=== PATIENT | female | born 1960 | race American Indian/Alaskan Native ===

== ENCOUNTER 2016-12-13 13:19 | Emergency (ER) | payer MEDICAID, MEDICARE ==
[2016-12-13] MEDS ORDERED: Ketorolac 60 MG/2 ML SDV IM ONE (14:02)
[2016-12-13] MEDS ORDERED: Cyclobenzaprine 10 MG Tab PO ONE (14:02)
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
[2016-12-13 14:34] VITALS: BP 138/63
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
== END 2016-12-13 15:21 | disposition home or self-care (01) ==
LOC: JP.ED 13:19
DX: M54.2 Cervicalgia (principal); M25.519 Pain in unspecified shoulder; F17.210 Nicotine dependence, cigarettes, uncomplicated; J44.9 Chronic obstructive pulmonary disease, unspecified; I10 Essential (primary) hypertension; E66.9 Obesity, unspecified; F43.10 Post-traumatic stress disorder, unspecified; Z98.51 Tubal ligation status; Z90.49 Acquired absence of other specified parts of digestive tract; Z79.899 Other long term (current) drug therapy; V89.2XXA Person injured in unspecified motor-vehicle accident, traffic, initial encounter
CPT/HCPCS: 70450; 71250; 72125; 96372; 99284; A9270; J1885

== ENCOUNTER 2019-07-25 14:37 | Emergency (ER) | payer MEDICARE ==
[2019-07-25 14:57] VITALS: BP 183/87; PULSE 61
[2019-07-25] MEDS ORDERED: Prochlorperazine 10 MG/2 ML SDV IVPUSH ONE (14:59)
--- NOTE | 2019-07-25 15:07 | EDM.PDOC ---
ED HPI GENERAL MEDICAL PROBLEM - General Chief Complaint: Abdominal Pain Stated Complaint: MEDICAL VIA [facility] Time Seen by Provider: 07/25/19 14:45 Source of Information: Reports: Patient, EMS, Old Records, RN History Limitations: Reports: No Limitations - History of Present Illness INITIAL COMMENTS - FREE TEXT/NARRATIVE: 58 yo female developed abdominal pain with a sense of some mild bloating and nausea about 0700h today. These sx's have progressed. Is improved after EMS gave Fentanyl and Zofran, but not resolved. No fever. No change in bowels. Has had a few abdominal surgeries in the past for ectopic preg and appendectomy. Pain is generalized. Last week had viral gastroenteritis with vomiting and diarrhea, but these sx's have been resolved for several days. No urinary sx's. Onset: Today Onset Date: 07/25/19 Onset Time: 07:00 Duration: Hour(s):, Getting Worse Location: Reports: Abdomen Quality: Reports: Ache Severity: Moderate Improves with: Reports: Medication Worsens with: Reports: Other (? time) Context: Reports: Other (see HPI) Associated Symptoms: Reports: Nausea/Vomiting. 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 (see below) (See HPI) Abdomen Pain Score (Numeric/FACES): 2 - Related Data Allergies Allergy/AdvReac Type Severity Reaction Status Date / Time No Known Allergies Allergy Verified 07/25/19 14:39 Home Meds: Home Meds Albuterol [Proair HFA] 2 puff IH ASDIRECTED PRN 08/29/13 [History] Budesonide/Formoterol Fumarate [Symbicort 80-4.5 MCG] 2 puff IH BID 08/29/13 [ History] Cetirizine [ZyrTEC] 10 mg PO ASDIRECTED PRN 08/29/13 [History] Lisinopril/Hydrochlorothiazide [Lisinopril-Hctz 20-12.5 mg Tab] 10 mg PO DAILY 08/29/13 [History] Omeprazole 20 mg PO DAILY 08/29/13 [History] Pregabalin [Lyrica] 150 mg PO BID 08/29/13 [History] Venlafaxine [Venlafaxine ER] 300 mg PO DAILY 08/29/13 [History] Aspirin [[place] Aspirin] 81 mg PO DAILY 12/13/16 [History] Past Medical History HEENT History: Reports: Allergic Rhinitis Cardiovascular History: Reports: Hypertension 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: 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: Musculoskeletal History: Reports: Back Pain, Chronic, Fibromyalgia Neurological History: Reports: Migraines Psychiatric History: Reports: Anxiety, Depression, PTSD Endocrine/Metabolic History: Reports: Obesity/BMI 30+ - Infectious Disease History Infectious Disease History: Reports: C-Difficile, Influenza, Measles - Past Surgical History Respiratory Surgical History: Reports: None GI Surgical History: Reports: Appendectomy Female Surgical History: Reports: Tubal Ligation Social & Family History - Caffeine Use Caffeine Use: Reports: Coffee ED ROS GENERAL - Review of Systems Review Of Systems: See Below Constitutional: Reports: No Symptoms HEENT: Reports: No Symptoms Respiratory: Reports: No Symptoms Cardiovascular: Reports: No Symptoms GI/Abdominal: Reports: Abdominal Pain, Distension (? mild), Nausea. Denies: Black Stool, Bloody Stool, Constipation, Diarrhea, Flatus, Hematemesis, Hematochezia, Melena, Vomiting : Reports: No Symptoms Musculoskeletal: Reports: No Symptoms Skin: Reports: No Symptoms Neurological: Reports: No Symptoms Psychiatric: Reports: No Symptoms ED EXAM, GI/ABD - Physical Exam Exam: See Below Exam Limited By: No Limitations General Appearance: Alert, WD/WN, No Apparent Distress Eyes: Bilateral: Normal Appearance Ears: Normal External Exam, Normal Canal, Hearing Grossly Normal Nose: Normal Inspection, No Blood Throat/Mouth: Normal Inspection, Normal Lips, Normal Oropharynx, Normal Voice, No Airway Compromise Head: Atraumatic, Normocephalic Neck: Normal Inspection Respiratory/Chest: No Respiratory Distress, Lungs Clear, Normal Breath Sounds, No Accessory Muscle Use Cardiovascular: Regular Rate, Rhythm, No Edema GI/Abdominal Exam: Soft, No Distention (not apparent on exam), Tender (mild, diffuse). No: Non-Tender, Distended, Guarding, Rigid, Rebound, Hernia Back Exam: Normal Inspection. No: CVA Tenderness (R), CVA Tenderness (L) Extremities: Normal Inspection, Normal Range of Motion, Non-Tender, No Pedal Edema Neurological: Alert, Oriented, CN II-XII Intact, Normal Cognition, No Motor/ Sensory Deficits Psychiatric: Normal Affect, Normal Mood Skin Exam: Warm, Dry, Intact, Normal Color, No Rash Course - Vital Signs Text/Narrative:: On re-examination does seem to be especially tender in the RUQ. Dr. Vergara called @ 1639h Last Recorded V/S: Last Vital Signs Temp 36.5 C 07/25/19 14:57 Pulse 61 07/25/19 14:57 Resp 20 07/25/19 14:57 BP 183/87 H 07/25/19 14:57 Pulse Ox 98 07/25/19 14:57 - Orders/Labs/Meds Orders: Active Orders 24 hr Category Date Time Status Iopamidol [Isovue-300 (61%)] Med 07/25/19 16:00 Active 100 ml IV . DIRECTED Sodium Chloride 0.9% [Normal Saline] 100 ml Med 07/25/19 16:00 Active IV ASDIRECTED Medication Orders Sodium Chloride (Normal Saline) 100 mls @ 3 mls/sec IV ASDIRECTED REESE Last Admin: 07/25/19 16:05 Dose: 3 mls/sec Iopamidol (Isovue-300 (61%)) 100 ml IV . DIRECTED REESE Last Admin: 07/25/19 16:05 Dose: 100 ml Labs: Laboratory Tests 07/25/19 07/25/19 07/25/19 Range/Units 15:11 15:11 15:11 WBC 8.4 (4.5-11.0) K/uL RBC 4.80 (3.30-5.50) M/uL Hgb 13.7 (12.0-15.0) g/dL Hct 42.3 (36.0-48.0) % MCV 88 (80-98) fL MCH 29 (27-31) pg MCHC 32 (32-36) % Plt Count 255 (150-400) K/uL Sodium 134 L (140-148) mmol/L Potassium 4.1 (3.6-5.2) mmol/L Chloride 96 L (100-108) mmol/L Carbon Dioxide 23 (21-32) mmol/L Anion Gap 19.1 H (5.0-14.0) mmol/L BUN 7 (7-18) mg/dL Creatinine 0.7 (0.6-1.0) mg/dL Est Cr Clr Drug Dosing 79.79 mL/min Estimated GFR (MDRD) > 60 (>60) Glucose 108 H (74-106) mg/dL Calcium 9.3 (8.5-10.1) mg/dL Total Bilirubin 0.5 D (0.2-1.0) mg/dL AST 210 H D (15-37) U/L ALT 160 H (12-78) U/L Alkaline Phosphatase 288 H D (46-116) U/L C-Reactive Protein 2.00 H (0.0-0.3) mg/dL Total Protein 8.3 H (6.4-8.2) g/dL Albumin 3.9 (3.4-5.0) g/dL Globulin 4.4 H (2.3-3.5) g/dL Albumin/Globulin Ratio 0.9 L (1.2-2.2) Lipase (73-393) U/L Urine Color (YELLOW) Urine Appearance (CLEAR) Urine pH (5.0-8.0) Ur Specific Reagan (1.008-1.030) Urine Protein (NEGATIVE) mg/dL Urine Glucose (UA) (NEGATIVE) mg/dL Urine Ketones (NEGATIVE) mg/dL Urine Occult Blood (NEGATIVE) Urine Nitrite (NEGATIVE) Urine Bilirubin (NEGATIVE) Urine Urobilinogen (0.2-1.0) EU/dL Ur Leukocyte Esterase (NEGATIVE) Urine RBC (0-5) Urine WBC (0-5) Ur Epithelial Cells Amorphous Sediment Urine Bacteria Urine Mucus 07/25/19 07/25/19 Range/Units 15:28 15:45 WBC (4.5-11.0) K/uL RBC (3.30-5.50) M/uL Hgb (12.0-15.0) g/dL Hct (36.0-48.0) % MCV (80-98) fL MCH (27-31) pg MCHC (32-36) % Plt Count (150-400) K/uL Sodium (140-148) mmol/L Potassium (3.6-5.2) mmol/L Chloride (100-108) mmol/L Carbon Dioxide (21-32) mmol/L Anion Gap (5.0-14.0) mmol/L BUN (7-18) mg/dL Creatinine (0.6-1.0) mg/dL Est Cr Clr Drug Dosing mL/min Estimated GFR (MDRD) (>60) Glucose (74-106) mg/dL Calcium (8.5-10.1) mg/dL Total Bilirubin (0.2-1.0) mg/dL AST (15-37) U/L ALT (12-78) U/L Alkaline Phosphatase (46-116) U/L C-Reactive Protein (0.0-0.3) mg/dL Total Protein (6.4-8.2) g/dL Albumin (3.4-5.0) g/dL Globulin (2.3-3.5) g/dL Albumin/Globulin Ratio (1.2-2.2) Lipase 89 (73-393) U/L Urine Color Yellow (YELLOW) Urine Appearance Clear (CLEAR) Urine pH 8.5 H (5.0-8.0) Ur Specific Reagan 1.020 (1.008-1.030) Urine Protein Negative (NEGATIVE) mg/dL Urine Glucose (UA) Negative (NEGATIVE) mg/dL Urine Ketones 40 H (NEGATIVE) mg/dL Urine Occult Blood Negative (NEGATIVE) Urine Nitrite Negative (NEGATIVE) Urine Bilirubin Negative (NEGATIVE) Urine Urobilinogen 0.2 (0.2-1.0) EU/dL Ur Leukocyte Esterase Negative (NEGATIVE) Urine RBC 0-5 (0-5) Urine WBC 0-5 (0-5) Ur Epithelial Cells Few Amorphous Sediment Few Urine Bacteria Not seen Urine Mucus Not seen Meds: Medications Generic Name Dose Route Start Last Admin Trade Name Freq PRN Reason Stop Dose Admin Sodium Chloride 100 mls @ 3 mls/sec 07/25/19 16:00 07/25/19 16:05 Normal Saline IV 3 mls/sec ASDIRECTED REESE Administration Iopamidol 100 ml 07/25/19 16:00 07/25/19 16:05 Isovue-300 (61%) IV 100 ml . DIRECTED REESE Administration Discontinued Medications Generic Name Dose Route Start Last Admin Trade Name Freq PRN Reason Stop Dose Admin Ketorolac Tromethamine 30 mg 07/25/19 15:48 07/25/19 15:54 Toradol IVPUSH 07/25/19 15:49 30 mg ONETIME ONE Administration Prochlorperazine Edisylate 5 mg 07/25/19 14:59 07/25/19 15:20 Compazine IVPUSH 07/25/19 15:00 5 mg ONETIME ONE Administration Sodium Chloride 10 ml 07/25/19 15:55 07/25/19 16:05 Saline Flush FLUSH 07/25/19 15:56 10 ml ONETIME ONE Administration - Radiology Interpretation Free Text/Narrative:: Flat/upright abd L-crus-Ghvuglodri: Few prominent loops of small bowel in the mid abdomen could represent early small bowel obstruction. Dictated by Tania Danielle MD @ Jul 25 2019 3:34PM CT abd/pelvis with IV contrast- IMPRESSIONS: 1. A single fluid-filled loop of small bowel in the left flank is noted measuring 3.8 cm. This may be due to peristalsis or a sentinel loop. 2. Mild gallbladder distention is present measuring 4.5 cm in diameter with minimal gallbladder wall edema seen. Evaluation with ultrasound is recommended if the patient has right upper quadrant pain or tenderness. Dictated by Darren Abad MD @ 07/25/2019 4:34:[address] Results Date: 07/25/19 Departure - Departure Time of Disposition: 16:45 Disposition: Home, Self-Care 01 Condition: Fair Clinical Impression: Biliary colic - Discharge Information *PRESCRIPTION DRUG MONITORING PROGRAM REVIEWED*: No *COPY OF PRESCRIPTION DRUG MONITORING REPORT IN PATIENT PAT: No Instructions: Abdominal Pain, Adult, [id number] Referrals: PCP,None [Primary Care Provider] - Forms: ED Department Discharge Additional Instructions: Return tomorrow morning [address] Vergara. Don't eat or drink anything after midnight. No fat in anything you eat this evening. Return in the interim as needed. Sepsis Event Note - Evaluation Sepsis Screening Result: No Definite Risk - Focused Exam Vital Signs: Vital Signs Temp Pulse Resp BP Pulse Ox 07/25/19 14:57 36.5 C 61 20 183/87 H 98 07/25/19 14:55 36.5 C 61 20 183/87 H 98 Date Exam was Performed: 07/25/19 Time Exam was Performed: 16:45 - My Orders Last 24 Hours: My Active Orders 07/25/19 16:00 Iopamidol [Isovue-300 (61%)] 100 ml IV . DIRECTED Sodium Chloride 0.9% [Normal Saline] 100 ml IV ASDIRECTED - Assessment/Plan Last 24 Hours: My Active Orders 07/25/19 16:00 Iopamidol [Isovue-300 (61%)] 100 ml IV . DIRECTED Sodium Chloride 0.9% [Normal Saline] 100 ml IV ASDIRECTED
--- NOTE | 2019-07-25 15:39 | CRLCR ---
Indication: Abdominal pain, nausea, bloating all day. Technique: Abdomen and pelvis 4 view. Comparison: None. Findings: Few prominent loops of small bowel in the mid abdomen could represent early small bowel obstruction. No significant stool burden. No free air or pneumatosis. The lung bases are clear. Impression: Few prominent loops of small bowel in the mid abdomen could represent early small bowel obstruction. Dictated by Tania Danielle MD @ Jul 25 2019 3:34PM Signed by Dr. Tania Danielle @ Jul 25 2019 3:38PM
[2019-07-25] MEDS ORDERED: Ketorolac 30 MG/ML SDV IVPUSH ONE (15:48)
[2019-07-25] MEDS ORDERED: Sodium Chloride 0.9% 10 ML Syringe FLUSH ONE (15:55)
[2019-07-25] MEDS ORDERED: Sodium Chloride 0.9% 100 ML IV SCH (16:00)
[2019-07-25] MEDS ORDERED: Iopamidol 612 MG/ML 100 ML Bottle IV SCH (16:00)
--- NOTE | 2019-07-25 16:35 | CRLCT ---
INDICATION: Abdominal pain TECHNIQUE: CT Abdomen and pelvis with i.v. contrast. Coronal and sagittal reformats were obtained. CONTRAST: 100 mL Isovue 300 COMPARISON: None FINDINGS: Lower chest: Unremarkable. Liver: Unremarkable. Spleen: Unremarkable. Pancreas: Unremarkable. Gallbladder: Mild gallbladder distention is present measuring 4.5 cm in diameter with minimal gallbladder wall edema seen. Kidney: Unremarkable. No kidney or ureteral stones or obstruction seen. Adrenal: Unremarkable. Bowel: Small sliding type gastric hiatal hernia (type IV) is present. Moderate to severe sigmoid diverticulosis is present with no evidence of diverticulitis. A single fluid-filled loop of small bowel in the left flank is noted measuring 3.8 cm. Previous appendectomy noted with a 1.3 cm appendiceal stump identified. Vascular: Unremarkable. Lymph: Unremarkable. Peritoneum: Unremarkable. No pneumoperitoneum is seen. No significant ascites is noted. Pelvis: Unremarkable. Soft tissue: Unremarkable. Bone: Unremarkable for age. IMPRESSIONS: 1. A single fluid-filled loop of small bowel in the left flank is noted measuring 3.8 cm. This may be due to peristalsis or a sentinel loop. 2. Mild gallbladder distention is present measuring 4.5 cm in diameter with minimal gallbladder wall edema seen. Evaluation with ultrasound is recommended if the patient has right upper quadrant pain or tenderness. Dictated by Darren Abad MD @ 07/25/2019 4:34:10 PM Please note that all CT scans at this facility use dose modulation, iterative reconstruction, and/or weight-based dosing when appropriate to reduce radiation dose to as low as reasonably achievable. Dictated by: Darren Abad MD @ 07/25/2019 16:34:13 (Electronically Signed)
--- NOTE | 2019-07-28 08:17 | CONS ---
DATE OF SERVICE: 07/25/2019 REFERRING PHYSICIAN: CONSULTING PHYSICIAN: Jose F Vegrara MD REASON FOR CONSULTATION: Abdominal pain. HISTORY OF PRESENT ILLNESS: A 58-year-old female who had right upper quadrant abdominal pain. This is an intermittent problem, but this is definitely an acute change. Her pain is 3 to 4/10. She did undergo a CT scan, which showed mild inflammation in the gallbladder. PAST MEDICAL HISTORY: 1. Ectopic surgery. 2. Appendectomy. 3. Hypertension. 4. COPD. 5. Chronic back pain. 6. Fibromyalgia. 7. Migraines. 8. Depression. 9. History of tubal ligation. SOCIAL HISTORY: She does smoke. FAMILY HISTORY: Noncontributory. REVIEW OF SYSTEMS: GENERAL: The patient is stable. HEENT: No symptoms. CARDIOVASCULAR: No history of myocardial infarction. GASTROINTESTINAL: As above. No acholic stools. MUSCULOSKELETAL: No abnormalities. SKIN: No gross symptoms. NEUROLOGICAL: No history of stroke. PSYCHIATRIC: No gross depression. PHYSICAL EXAMINATION: VITAL SIGNS: Stable. HEENT: Pupils are equal. NECK: Supple. LUNGS: Clear. CARDIOVASCULAR: Regular rhythm and rate. RESPIRATORY: Lungs clear to auscultation bilaterally. ABDOMEN: She has pain with palpation, right upper quadrant. EXTREMITIES: Full range of motion. NEUROLOGICAL: Alert and oriented x3. PSYCHIATRIC: No gross depression. LABORATORY RESULTS: Show a normal white blood cell count. Total bilirubin is 0.5. ASSESSMENT AND PLAN: The patient will be taken to the operating room tomorrow morning for laparoscopic cholecystectomy. We discussed risks, benefits, alternatives, and limitations including, but not limited to, infection, bleeding, cystic duct leaks, and common bile duct injury, possibility of open surgery, and other risks not listed here. The patient understands these risks and wishes to proceed. Jose F Vergara MD /[id number]
== END 2019-07-25 17:00 | disposition home or self-care (01) ==
LOC: JP.ED 14:37
DX: R10.11 Right upper quadrant pain (principal); I10 Essential (primary) hypertension; J44.9 Chronic obstructive pulmonary disease, unspecified; F32.9 Major depressive disorder, single episode, unspecified; F17.200 Nicotine dependence, unspecified, uncomplicated; Z79.899 Other long term (current) drug therapy
CPT/HCPCS: 36415; 74019; 74177; 80053; 81001; 83690; 85027; 86140; 96374; 96375; 99284; 99284-25; J0780; J1885; J7050; Q9967

== ENCOUNTER 2019-07-26 07:33 | Day surgery (SDC) | payer MEDICARE ==
[2019-07-26] MEDS ORDERED: Bupivacaine 0.5% 50 ML MDV ONE (08:07)
[2019-07-26] MEDS ORDERED: Lidocaine 1% with EPINEPHrine 1:100,000 50 ML MDV ONE (08:07)
[2019-07-26] MEDS ORDERED: metroNIDAZOLE/Normal Saline 500 MG in Premix Bag 1 BAG IV ONE ×2 (08:32→09:15)
[2019-07-26] MEDS ORDERED: ceFAZolin 2 GM in Premix Bag 1 BAG IV ONE ×2 (08:32→09:15)
[2019-07-26] MEDS ORDERED: Albuterol/Ipratropium 3.0-0.5 MG/3 ML Neb Soln NEB ONE (08:46)
[2019-07-26] MEDS ORDERED: Albuterol/Ipratropium 3.0-0.5 MG/3 ML Neb Soln ONE (09:13)
[2019-07-26] MEDS ORDERED: Lidocaine 2% 100 MG/5 ML Syringe ONE (09:41)
[2019-07-26] MEDS ORDERED: fentaNYL 250 MCG/5 ML SDV ONE ×2 (09:41→10:35)
[2019-07-26] MEDS ORDERED: Neostigmine Methylsulfate 1 MG/ML 5 ML Syringe ONE (09:41)
[2019-07-26] MEDS ORDERED: Succinylcholine 200 MG/10 ML MDV ONE (09:41)
[2019-07-26] MEDS ORDERED: Ondansetron 4 MG/2 ML SDV ONE (09:41)
[2019-07-26] MEDS ORDERED: Rocuronium 50 MG/5 ML Vial ONE (09:41)
[2019-07-26] MEDS ORDERED: Glycopyrrolate 0.2 MG/ML 5 ML MDV ONE (09:41)
[2019-07-26] MEDS ORDERED: Propofol 200 MG/20 ML SDV ONE (09:41)
[2019-07-26] MEDS ORDERED: Dexamethasone 4 MG/ML SDV ONE (09:41)
[2019-07-26] MEDS ORDERED: Lactated Ringers 1,000 ML ONE (10:56)
[2019-07-26] MEDS ORDERED: Benzocaine/Cetylpyridinium/Menthol Lozenge MUCMEM PRN (11:32)
[2019-07-26] MEDS ORDERED: hydrOXYzine HCL 100 MG/2 ML SDV IM PRN (11:32)
[2019-07-26] MEDS ORDERED: Docusate Sodium 100 MG Cap PO PRN (11:32)
[2019-07-26] MEDS ORDERED: Acetaminophen/HYDROcodone 325-5 MG Tab PO PRN (11:32)
[2019-07-26] MEDS ORDERED: Zolpidem 5 MG Tab PO PRN (11:32)
[2019-07-26] MEDS ORDERED: fentaNYL 100 MCG/2 ML SDV IVPUSH PRN (11:37)
[2019-07-26] MEDS ORDERED: FLU Vacc QS2019-20(6MOS+)/PF 60 MCG/0.5 ML SYRINGE IM ONE (14:00)
[2019-07-26 16:34] VITALS: BP 123/77; PULSE 74
--- NOTE | 2019-07-28 08:08 | OR ---
DATE OF PROCEDURE: 07/26/2019 SURGEON: Jose F Vergara MD PROCEDURE: Laparoscopic cholecystectomy. FINDINGS: Significantly edematous gallbladder consistent with an acute attack of cholelithiasis and cholecystitis. RISKS: Risks, benefits, alternatives, and limitations including, but not limited to infection, bleeding, and perforation of bowel or bladder, along with other risks were explained to the patient. The patient understood these risks, and they wished to proceed. PROCEDURE IN DETAIL: The patient was placed in supine position. The patient had some previous scars on her midline from previous laparoscopic surgery. Therefore, the entry point was moved slightly superior to this. A Veress needle was used to enter the abdomen without abnormality. A drop test was performed without abnormality. The abdomen was subsequently insufflated. This was followed by an Optiview trocar. Two additional 10 and two 5 mm ports were entered under direct visualization. The patient had significant edema and therefore an additional port was introduced in the right upper quadrant during this procedure. The gallbladder was retracted cephalad and the infundibulum was retracted inferolaterally. Using blunt dissection, a "clear view" of the gallbladder was obtained with a single nonpulsatile structure in the gallbladder and 2 small pulsatile arteries noted. These arteries themselves were approximately 2 to 3 mm in size, significantly smaller than any ductal type structures. These were addressed with Harmonic scalpel individually. The cystic duct was clipped x3 and transected. The remaining one-third of the gallbladder was removed off the gallbladder bed. The patient was noted to have significant edema with respect to her gallbladder and its association with the liver. Bag was moved to the superior port without difficulty. Electrocautery was used to control any additional bleeding. The abdomen was thoroughly irrigated and the liquid was removed. The entry point to the abdomen was checked for abnormalities and none were noted. The air was removed. Dressings were applied. The patient tolerated the procedure well. Jose F Vergara MD /[id number]
--- NOTE | 2019-07-28 08:08 | OR ---
DATE OF PROCEDURE: 07/26/2019 SURGEON: Jose F Vergara MD PROCEDURE: Transversus abdominis plane blocks. COMPLICATIONS: None. CLINIC MANAGER: None. RISKS: Risks, benefits, alternatives, and limitations including, but not limited to infection, bleeding, and injury to abdominal structures were explained to the patient, and they wished to proceed. DESCRIPTION OF PROCEDURE: The patient was placed in supine position. The right side was addressed using a 13 megahertz ultrasound probe. 80% of the solution was injected under direct visualization. This was then performed on the other side in the same manner, same fashion, same technique in the same sequence. The patient tolerated the procedure well. Jose F Vergara MD /[id number]
== END 2019-07-26 16:00 | disposition home or self-care (01) ==
LOC: JP.SDS 07:33 → JP.MS 11:34 → JP.SDS 16:00
PROVIDERS: ATTEND Surgery
DX: K80.00 Calculus of gallbladder with acute cholecystitis without obstruction (principal); I10 Essential (primary) hypertension; J44.9 Chronic obstructive pulmonary disease, unspecified; G43.909 Migraine, unspecified, not intractable, without status migrainosus; K21.9 Gastro-esophageal reflux disease without esophagitis; F32.9 Major depressive disorder, single episode, unspecified; F17.200 Nicotine dependence, unspecified, uncomplicated
CPT/HCPCS: 47562; 90686; 93005; 94640; A9270 ×2; G0008; J0171; J0330; J0690; J1100 ×2; J2001; J2405; J2704; J2710; J2795; J3010 ×2; J3490 ×3; J7050; J7120; 88304; J7620-GY

== ENCOUNTER 2021-07-21 11:55 | Emergency (ER) | payer MEDICARE ==
[2021-07-21 12:20] VITALS: BP 172/107; PULSE 76
[2021-07-21] MEDS ORDERED: Bacitracin Oint 1 GM U/D Packet TOP ONE (13:26)
[2021-07-21] MEDS ORDERED: Lidocaine 1% with EPINEPHrine 1:100,000 50 ML MDV INFILT ONE (13:27)
[2021-07-21] MEDS ORDERED: Diphtheria,Pertussis(Acell),Tetanus Vaccine 0.5 ML Syringe IM ONE (14:12)
== END 2021-07-21 14:36 | disposition home or self-care (01) ==
LOC: JP.ED 11:55
DX: S01.81XA Laceration without foreign body of other part of head, initial encounter (principal); I10 Essential (primary) hypertension; J44.9 Chronic obstructive pulmonary disease, unspecified; E66.9 Obesity, unspecified; Z68.29 Body mass index [BMI] 29.0-29.9, adult; Z23 Encounter for immunization; Z91.048 Other nonmedicinal substance allergy status; Z79.82 Long term (current) use of aspirin; Z79.899 Other long term (current) drug therapy; W01.198A Fall on same level from slipping, tripping and stumbling with subsequent striking against other object, initial encounter
CPT/HCPCS: 70450; 70450-26; 90471; 90715; 99283-25

== ENCOUNTER 2021-08-03 16:10 | Emergency (ER) | payer MEDICAID, MEDICARE ==
[2021-08-03 16:30] VITALS: BP 206/131; PULSE 85
== END 2021-08-03 17:29 | disposition home or self-care (01) ==
LOC: JP.ED 16:10
DX: K08.89 Other specified disorders of teeth and supporting structures (principal); K02.9 Dental caries, unspecified; I10 Essential (primary) hypertension; J44.9 Chronic obstructive pulmonary disease, unspecified; E66.9 Obesity, unspecified; Z68.29 Body mass index [BMI] 29.0-29.9, adult; Z72.0 Tobacco use; Z91.048 Other nonmedicinal substance allergy status; Z79.899 Other long term (current) drug therapy
CPT/HCPCS: 99282